=== PATIENT | female | born 1950 | race Caucasian/White ===

== ENCOUNTER 2017-01-16 21:45 | Emergency (ER) | payer MEDICARE, OTHER ==
[~2017-01-16] VITALS: Ht 170.2 cm; Wt 69.1 kg
[2017-01-16 21:48] VITALS: BP 183/100; TEMP 98.4
[2017-01-16] MEDS ORDERED: MULTIPLE VITAMI1 CAP PO (21:51)
[2017-01-16 22:41] LABS: BASO % 0.4 % (0.0-2.0); EOS # 0.1 (0.0-0.7); EOS % 0.9 % (0-4.0); GRAN # 5.5 (1.4-6.5); GRAN % 72.1 % (42.2-75.2); HEMATOCRIT 41.5 % (37.0-47.0); HEMOGLOBIN 13.3 g/dl (12.5-16.0); LYMPH # 1.3 (1.2-3.4); LYMPH % 17.7 % (20.0-51.0); MEAN CELL VOLUME 90 fl (80.0-100.0); MEAN CORPUSCULAR HEMOGLOBIN 29 pg (27.0-31.0); MEAN CORPUSCULAR HGB CONC 32 g/dl (33.0-37.0); MEAN PLATELET VOLUME 9.9 fl (7.4-10.4); MONO # 0.7 (0.1-0.6); MONO % 8.6 % (1.7-9.3); PLATELET COUNT 227 K/mm3 (130-400); RED BLOOD COUNT 4.61 M/mm3 (4.10-5.30); REDCELL DISTRIBUTION WIDTH-CV 14.5 % (11.5-14.5); WHITE BLOOD COUNT 7.6 K/mm3 (4.8-10.8)
[2017-01-16 22:44] LABS: PH 6 (5-8); SQUAMOUS EPITHELIAL 0-2 /hpf; URINE APPEARANCE Clear; URINE BACTERIA None Seen /hpf; URINE BILIRUBIN Negative (NEGATIVE); URINE BLOOD 1+ (NEGATIVE); URINE COLOR Straw; URINE GLUCOSE Negative (NEGATIVE); URINE KETONE Negative (NEGATIVE); URINE RBC 0-2 /hpf; URINE UROBILINOGEN Negative (NEGATIVE); URINE WBC 0-2 /hpf
[2017-01-16 23:01] LABS: ADJUSTED CALCIUM 9.3 mg/dL (8.4-10.2); ALBUMIN 4.3 gm/dL (3.5-5.0); BILIRUBIN,TOTAL 0.4 mg/dL (0.0-1.0); CALCIUM 9.5 mg/dL (8.4-10.2); CREATININE, serum 0.78 mg/dL (0.52-1.25); POTASSIUM 4.2 mmol/L (3.4-5.0); TOTAL PROTEIN 7.5 gm/dL (6.4-8.2)
[2017-01-16] MEDS ORDERED: FLEXERIL 1010 MG/TAB PO (23:21)
[2017-01-16] MEDS ORDERED: NORCO 325 MG-51 TAB PO (23:21)
[2017-01-16 23:34] VITALS: PULSE 64
== END 2017-01-16 23:35 | disposition home or self-care (01) ==
LOC: COL.ER 21:45
PROVIDERS: Emergency Medicine
DX: R10.9 Unspecified abdominal pain (principal)
CPT/HCPCS: J2405; J3010; J7030

== ENCOUNTER → 2017-03-06 | Outpatient (CLI) | payer MEDICARE, OTHER ==
[~2017-03-06] MED LIST: FLEXERIL 1010 MG/TAB PO; MULTIPLE VITAMI1 CAP PO; NORCO 325 MG-51 TAB PO; VALIUM 5MG T5 MG/TAB PO
== END ==
LOC: MC.RAD 11:00
DX: Z12.31 Encounter for screening mammogram for malignant neoplasm of breast (principal)

== ENCOUNTER → 2017-09-01 | Outpatient (CLI) | payer MEDICARE, OTHER | LOC: COL.PUL 07:45 | DX: R06.09 Other forms of dyspnea (principal); Z87.891 Personal history of nicotine dependence ==

== ENCOUNTER → 2017-09-05 | Outpatient (CLI) | payer MEDICARE, OTHER | LOC: COL.VAS 07:45 | DX: I08.8 Other rheumatic multiple valve diseases (principal); I77.810 Thoracic aortic ectasia; R47.89 Other speech disturbances | CPT/HCPCS: Q9967 ==

== ENCOUNTER → 2017-09-19 | Outpatient (CLI) | payer MEDICARE | LOC: COL.PUL 13:00 | DX: R06.02 Shortness of breath (principal); Z87.891 Personal history of nicotine dependence | CPT/HCPCS: J7674 ==

== ENCOUNTER → 2018-04-12 | Outpatient (CLI) | payer MEDICARE | LOC: MC.RAD 04-07 09:20 | DX: Z12.31 Encounter for screening mammogram for malignant neoplasm of breast (principal) ==

== ENCOUNTER → 2018-05-18 | Outpatient (CLI) | payer MEDICARE | LOC: COL.RAD 08:53 | DX: M48.02 Spinal stenosis, cervical region (principal) ==

== ENCOUNTER → 2018-07-10 | Outpatient (CLI) | payer MEDICARE | LOC: MHCPAIN 09:10 | DX: G89.29 Other chronic pain (principal); M54.12 Radiculopathy, cervical region; M47.812 Spondylosis without myelopathy or radiculopathy, cervical region; R51 Headache | CPT/HCPCS: G0463 ==

== ENCOUNTER → 2018-07-23 | Outpatient (CLI) | payer MEDICARE | LOC: COL.RAD 10:23 | DX: M50.10 Cervical disc disorder with radiculopathy, unspecified cervical region (principal) ==

== ENCOUNTER → 2019-06-03 | Outpatient (CLI) | payer MEDICARE | LOC: MC.RAD 05-16 08:30 | DX: Z12.31 Encounter for screening mammogram for malignant neoplasm of breast (principal) ==

== ENCOUNTER → 2020-08-13 | Outpatient (CLI) | payer MEDICARE | LOC: MC.RAD 06-30 15:45 | DX: Z12.31 Encounter for screening mammogram for malignant neoplasm of breast (principal) ==

== ENCOUNTER → 2021-07-09 | Outpatient (CLI) | payer MEDICARE | LOC: COL.RAD 07:05 | DX: M48.02 Spinal stenosis, cervical region (principal); M50.30 Other cervical disc degeneration, unspecified cervical region; S13.9XXA Sprain of joints and ligaments of unspecified parts of neck, initial encounter; X58.XXXA Exposure to other specified factors, initial encounter ==

== ENCOUNTER 2021-07-22 10:08 | Emergency (ER) | payer MEDICARE ==
[~2021-07-22] VITALS: Ht 172.7 cm; Wt 70.0 kg
[2021-07-22 10:17] VITALS: BP 231/119
--- NOTE | 2021-07-22 11:57 | NUR ---
Cardiology Specialist arrived in ED in response to code blue. SW met patient's , Ge in the lobby and escorted him to the family waiting area. ED Physician met with patient's and notified him that patient had . MIKE stayed with Ge and offered emotional support until family friend, Lisandra arrived to be with Ge. Ge advised that he has three children located in [place], [place], and [place]. Ge advised his son from [place] is on his way. Chaplain Lucina is also with for support. MIKE contacted [facility] and connected them with RN, Socorro for further clinical questions. Ref #[id number]. Patient's family has selected [facility]. MIKE was contacted by Shanna at [facility] who advised patient is not eligible for tissue donation, but a referral was sent to the [facility] bank as patient may be eligible for eye donation. MIKE contacted [facility] to provide the above update.
--- NOTE | 2021-07-22 12:37 | NUR ---
Initial visit with Treva's Ge as Physician spoke with him about Treva's . Launch Engineer went with him into ICU Rm. 1 and offered prayer and condolences along with accompanying him back to the waiting room where he was to meet with Admissions and await his son's arrival.
--- NOTE | 2021-07-22 13:06 | NUR ---
Radha with [facility] called and confirmed that they will not be retrieving for donations and authorize body to be released to crematory. floor service worker spring contacted [facility] and advised of the above information. Lolita will notify [facility].
== END 2021-07-22 14:34 | disposition expired ==
LOC: COL.ER 10:08
DX: I46.9 Cardiac arrest, cause unspecified (principal)
CPT/HCPCS: J0171; J0282